=== PATIENT | female | born 1965 | race Caucasian/White ===

== ENCOUNTER → 2016-10-17 | Outpatient (CLI) | payer OTHER ==
[~2016-10-17] VITALS: Ht 167.6 cm; Wt 66.2 kg
[~2016-10-17] MED LIST: ADDERALL 20 MG20 M1 PO; AMBIEN 10 MG TA10 MG PO; CARISOPRODOL 3350 MG PO; CYMBALTA60 MG PO; METHADONE HCL 110 M1 PO; MOVANTIK25 MG PO; NABUMETONE 750750 M1 PO; NORCO 5-325 TA1 EACH PO; NORFLEX100 MG PO; PERCOCET 5-3251 EACH PO; PERCOCET PO; SOMA250 MG; SUBOXONE 8 MG-1 EAC3 SL; XANAX1 MG PO; ZANAFLEX4 MG PO; ZOFRAN ODT4 MG PO
--- NOTE | ~2016-10-17 | HPC ---
[facility] [place] [address] PAIN MANAGEMENT CONSULTATION Name: CARLADMITRY LEW Room #: REG [facility] Meryl#: [id number] Admission: 10/17/16 Attend Phys: Darron Britt DO Discharge: Date of : 61 Report #: [id number] THIS REPORT FOR: //name// CC: Eder Britt HISTORY OF PRESENT ILLNESS: The patient is a 51-year-old female being treated for cervical and lumbar radiculopathy status post decompressive laminectomy, myofascial pain requiring complex medication management. She was last seen in the pain clinic 08/15/2016, continued on relatively high dose opiate analgesics, methadone 10 mg 5 times a day. Prior urine drug screen on 01/13/2016 was positive for prescribed medication including amphetamine and Xanax, which she receives from her psychiatrist. She returns to the pain clinic today noting that while medications have typically provided sufficient analgesia to participate in activities of daily living, she did have increasing pain over the holidays with increasing activity, though she is pleased with her functional status. She currently rates her pain as 6/10, primarily axial back pain. 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 Again, prior back surgery, lumbar fusion, laminectomy L2 through S1, 06/2015, prior C5 through C7 cervical fusion. Rates pain as 6/10, exacerbated with walking, movement and standing. Notes medications, ice and TENS unit afford efficacy. PHYSICAL EXAMINATION: GENERAL: Shows a 51-year-old female, BMI is 23.6 kg/m2. VITAL SIGNS: Stable as noted in the EMR. Does not use tobacco products. MUSCULOSKELETAL: Rises from the chair using the armrest. Gait is modestly antalgic. Diffuse tenderness across the low back. Lower extremity strength is preserved. Gait is tandem. We reviewed the fact that opiate medications are being used to provide analgesia adequate to support activities of daily living, not attempting to achieve a specific pain score on the 0-10 Visual Analog Scale. The current opiate medications are providing sufficient analgesia to allow the patient to participate in activities of daily living. The patient is not exhibiting any aberrant behavior suggestive of drug diversion. The patient is not having any adverse reactions to medications. The patient is not suffering from daytime somnolence or mental acuity changes. The patient is managing opiate-induced constipation with appropriate rznj-wai-dzjxyjj agents and dietary considerations. The patient was counseled on concern for caution with operating a motor vehicle while using opiate medications. [address] [address] PAIN MANAGEMENT CONSULTATION Name: DMITRY AGUIRRE Room #: REG [facility] Meryl#: [id number] Admission: 10/17/16 Attend Phys: Darron Britt DO Discharge: Date of : 61 Report #: [id number] A physical exam was performed and the patient's functional status was evaluated. All patients with back pain were advised against the bed rest greater than 4 days and were advised to return to normal activities. Pain score assessment was noted and the treatment plan was reviewed with the patient. All current medications, both prescribed and OTC were reviewed and reconciled on the electronic medical record. Tobacco screening was accomplished and smoking cessation was advised when indicated. BMI was noted and diet/exercise modification was recommended for all patients following outside normal parameters. I reviewed with the patient today their responsibilities to safeguard prescription medications, reviewed their responsibility to utilize medications only as prescribed by the physician. They are to seek and receive pain medications only from 1 physician group ( [facility]). They are to use 1 pharmacy and keep the clinic informed if they change pharmacies. Their responsibilities include making followup visits in a timely fashion and to avoid abrupt discontinuation of medication usage. Their responsibilities further include bringing their medications (bottles from the pharmacy with residual pills) to the visit for possible confirmation of pill counts and the patient understands it is their responsibility to submit to random drug screens to ensure both that the medications prescribed are present, and that no other controlled substances are present. All prescriptions provided today were generated electronically. ASSESSMENT: Chronic pain syndrome requiring complex medication management, myofascial pain component in a patient status post both cervical and lumbar decompressive laminectomy, stable on baseline medications. Currently, utilizing 50 mg of methadone a day equivalent to roughly 150 mEq of morphine. We did discuss this is a supratherapeutic dose of opiate analgesic by definition and concerned that some insurance companies are suggesting that they may not continue to support this dosing. It is noteworthy that when the patient came to my practice earlier in 2015, she was exhibiting opiate-induced hyperalgesia utilizing OxyContin 60 mg b.i.d., oxycodone 30 mg averaging about 4-6 a day, roughly 300 mg of oxycodone or 450 mEq of morphine at that time. Hence, she has dramatically lowered her overall opiate load. RECOMMENDATIONS: Continue baseline medication unchanged, methadone 10 mg 5 tablets a day, 2 in the morning, 1 at noon, and 2 at night. I have taken the liberty of writing for two months of current medications. Follow up at that time, earlier if needed. <ELECTRONICALLY SIGNED> By: Darron Britt DO 10/23/16 1031 [id number] [id number] Darron Britt DO /beckie
[2016-10-17 10:50] VITALS: BP 134/82
== END | disposition home or self-care (01) ==
LOC: PAIN 07:12
DX: G89.4 Chronic pain syndrome (principal); M79.1 Myalgia; M54.16 Radiculopathy, lumbar region; M54.12 Radiculopathy, cervical region; Z98.890 Other specified postprocedural states

== ENCOUNTER → 2017-02-06 | Outpatient (CLI) | payer OTHER ==
[~2017-02-06] VITALS: Ht 170.2 cm; Wt 64.4 kg
--- NOTE | ~2017-02-06 | HPC ---
[facility] [place] [address] PAIN MANAGEMENT CONSULTATION Name: CARLADMITRY VIPIN Room #: REG Elyse Sheth#: [id number] Admission: 02/06/17 Attend Phys: Darron Britt DO Discharge: Date of : 61 Report #: [id number] THIS REPORT FOR: //name// CC: Eder Britt HISTORY OF PRESENT ILLNESS: The patient is a 51-year-old female being treated for cervical radiculopathy status post decompressive laminectomy, ongoing axial back pain status post lumbar decompressive laminectomy, myofascial pain component requiring complex medication management. Last seen in the pain clinic 12/12/2016, continued on methadone 10 mg, 2 in the morning, one 3 times a day, subsequent total of 5 tablets a day, tizanidine 4 mg t.i.d. for spasm, Relafen 750 mg prescribed b.i.d., but she takes it nondaily. She was given trigger point injections at last visit with some efficacy. Last urine drug screen was 08/15/2016, positive for prescribed medications. The patient was initially seen in consultation in early 2015 on high dose opiates, 450 mg equivalent of morphine via OxyContin 60 mg b.i.d. and oxycodone 30 mg 4-6 tablets a day. She has come down nicely on her current medications and is quite functional. She returns to the pain clinic today noting medications are providing sufficient analgesia to continue pain at a 3 on a 0-10 visual analog scale, still has some pain primarily in the low back, which she attributes to physical therapist pulling on her doing some PT. Notes medications, continued to be helpful. She notes the pain is exacerbated with movement, walking, standing, some relief with medications using a TENS unit and using ice and/or lying down. PHYSICAL EXAMINATION: Relatively unchanged pleasant 51-year-old female, BMI is 22.2 kilograms per meter squared. Vital signs stable as noted on the EMR. Does not use tobacco products. Rises from the chair using the armrest. Gait is tandem. Diffuse tenderness in the low back, left greater than right. Lower extremity strength is preserved. EXTREMITIES: Cervical range of motion is modestly limited. Upper extremity strength is preserved. We reviewed the fact that opiate medications are being used to provide analgesia adequate to support activities of daily living, not attempting to achieve a specific pain score on the 0-10 Visual Analog Scale. The current opiate medications are providing sufficient analgesia to allow the patient to participate in activities of daily living. The patient is not exhibiting any aberrant behavior suggestive of drug diversion. The patient is not having any adverse reactions to medications. The patient is not suffering from daytime somnolence or mental acuity changes. The patient is managing opiate-induced constipation with appropriate zuoc-fyy-rovixpl agents and dietary considerations. The patient was counseled on concern [place] [address] PAIN MANAGEMENT CONSULTATION Name: CARLADMITRY VIPIN Room #: REG EVELYN Sheth#: [id number] Admission: 02/06/17 Attend Phys: Darron Britt DO Discharge: Date of : 61 Report #: [id number] a motor vehicle while using opiate medications. A physical exam was performed and the patient's functional status was evaluated. All patients with back pain were advised against the bed rest greater than 4 days and were advised to return to normal activities. Pain score assessment was noted and the treatment plan was reviewed with the patient. All current medications, both prescribed and OTC were reviewed and reconciled on the electronic medical record. Tobacco screening was accomplished and smoking cessation was advised when indicated. BMI was noted and diet/exercise modification was recommended for all patients following outside normal parameters. I reviewed with the patient today their responsibilities to safeguard prescription medications, reviewed their responsibility to utilize medications only as prescribed by the physician. They are to seek and receive pain medications only from 1 physician group ( [facility]). They are to use 1 pharmacy and keep the clinic informed if they change pharmacies. Their responsibilities include making followup visits in a timely fashion and to avoid abrupt discontinuation of medication usage. Their responsibilities further include bringing their medications (bottles from the pharmacy with residual pills) to the visit for possible confirmation of pill counts and the patient understands it is their responsibility to submit to random drug screens to ensure both that the medications prescribed are present, and that no other controlled substances are present. All prescriptions provided today were generated electronically. ASSESSMENT: Chronic pain syndrome requiring complex medication management, axial back pain, myofascial pain status post both cervical and lumbar decompressive laminectomies, requiring complex medication management, stable on baseline medication. RECOMMENDATION: Continue methadone 10 mg 5 tablets daily, 2 in the morning and 3 subsequent make that at three times a day, subsequent, tizanidine 4 mg t.i.d. for spasm, does not require prescription for nabumetone. Follow up in 2 months for reevaluation, earlier if needed. <ELECTRONICALLY SIGNED> By: Darron Britt DO 02/07/17 0925 1459 0643 Darron Britt DO /nt
[2017-02-06 14:04] VITALS: BP 137/84
== END ==
LOC: PAIN 08:03
DX: G89.4 Chronic pain syndrome (principal); M54.9 Dorsalgia, unspecified; M79.1 Myalgia; Z98.890 Other specified postprocedural states

== ENCOUNTER → 2017-04-11 | Outpatient (CLI) | payer OTHER ==
[~2017-04-11] VITALS: Ht 170.2 cm; Wt 72.1 kg
[2017-04-11 12:47] VITALS: BP 151/73
== END | disposition home or self-care (01) ==
LOC: PAIN 06:53
DX: M54.16 Radiculopathy, lumbar region (principal); M54.12 Radiculopathy, cervical region; M47.896 Other spondylosis, lumbar region; M79.1 Myalgia; F11.20 Opioid dependence, uncomplicated; Z98.890 Other specified postprocedural states; Z88.6 Allergy status to analgesic agent; Z88.8 Allergy status to other drugs, medicaments and biological substances

== ENCOUNTER → 2017-06-06 | Outpatient (CLI) | payer OTHER ==
[~2017-06-06] VITALS: Ht 170.2 cm; Wt 72.6 kg
[~2017-06-06] MED LIST changes: +HORMONE REPLACEMENT PO
--- NOTE | ~2017-06-06 | HPC ---
[facility] [address] [place] [address] PAIN MANAGEMENT CONSULTATION Name: Timi AGUIRRE Room #: REG EVELYN Sheth#: [id number] Admission: 06/06/17 Attend Phys: Darron Britt DO Discharge: Date of : 61 Report #: [id number] THIS REPORT FOR: //name// CC: Eder Britt The patient is a 52-year-old female being treated for symptomatic cervical radiculopathy, status post decompressive laminectomy; history of lumbar decompressive laminectomy; axial back pain; lumbar spondylosis requiring high-risk complex medication management. Last seen in the pain clinic on 04/11/2017. Continue methadone 10 mg 2 in the morning, 1 at noon and 2 at night; tizanidine 4 mg 1 or 2 for spasm breakthrough pain. We talked about weaning methadone as able. Returns to pain clinic today. She notes that she has actually been able to wean down on methadone typically taking one in the morning, one at noon and one or two at night. She notes no significant change in functional status. She still rates the pain about 3 on a VAS primarily mid low back pain radiating to the left hip. Aching, tender, constant, nagging sensation, exacerbated with walking, movement and standing. We reviewed the fact that opiate medications are being used to provide analgesia adequate to support activities of daily living, not attempting to achieve a specific pain score on the 0-10 Visual Analog Scale. The current opiate medications are providing sufficient analgesia to allow the patient to participate in activities of daily living. The patient is not exhibiting any aberrant behavior suggestive of drug diversion. The patient is not having any adverse reactions to medications. The patient is not suffering from daytime somnolence or mental acuity changes. The patient is managing opiate-induced constipation with appropriate tyme-avs-ncpgnak agents and dietary considerations. The patient was counseled on concern for caution with operating a motor vehicle while using opiate medications. A physical exam was performed and the patient's functional status was evaluated. All patients with back pain were advised against the bed rest greater than 4 days and were advised to return to normal activities. Pain score assessment was noted and the treatment plan was reviewed with the patient. All current medications, both prescribed and OTC were reviewed and reconciled on the electronic medical record. Tobacco screening was accomplished and smoking cessation was advised when indicated. BMI was noted and diet/exercise modification was recommended for all patients following outside normal parameters. I reviewed with the patient today their responsibilities to safeguard prescription medications, reviewed their responsibility to utilize medications only as prescribed by the physician. They are to seek and receive pain medications only from 1 physician group ( [facility]). They are to use [address] [place] [address] PAIN MANAGEMENT CONSULTATION Name: Timi AGUIRRE Room #: REG EVELYN Sheth#: [id number] Admission: 06/06/17 Attend Phys: Darron Britt DO Discharge: Date of : 61 Report #: [id number] pharmacy and keep the clinic informed if they change pharmacies. Their responsibilities include making followup visits in a timely fashion and to avoid abrupt discontinuation of medication usage. Their responsibilities further include bringing their medications (bottles from the pharmacy with residual pills) to the visit for possible confirmation of pill counts and the patient understands it is their responsibility to submit to random drug screens to ensure both that the medications prescribed are present, and that no other controlled substances are present. All prescriptions provided today were generated electronically. PHYSICAL EXAMINATION: Shows 52-year-old female. BMI is 25.1 kg/m2. Blood pressure is 90/64, pulse 84, respirations of 14. Rises from chair using armrest. Gait is tandem. Lower extremity strength is generally preserved. Lumbar flexion is modestly limited. The patient notes no problems with daytime somnolence, mental acuity changes nor constipation. In fact is actually having a little bit of loose stools. We talked about using an yqvn-rrq-fgkkvbn probiotics. Last urine drug screen on 08/15/2016 was positive for prescribed medications. RECOMMENDATIONS: We will repeat buccal swab at next visit. No aberrant behavior suggestive of drug diversion, simply complying with the opiate consent to treat contract. I have taken the liberty of renewing methadone 10 mg, decreasing from 150 to 120 tablets for 30 days one in the morning, one at noon and one or two at night. I have wrote for 2 months of current medication. Continue tizanidine 4 mg 1 tablet 3-4 times a day, limit 100 tablets for 30 days. Continue nabumetone 750 mg b.i.d. <ELECTRONICALLY SIGNED> By: Darron Britt DO 06/09/17 1253 1217 27 Darron Britt DO /nt
[2017-06-06 10:56] VITALS: BP 98/64
[2017-06-06 10:58] VITALS: BP 98/64
== END ==
LOC: PAIN 07:04
DX: M47.896 Other spondylosis, lumbar region (principal); M54.12 Radiculopathy, cervical region

== ENCOUNTER → 2017-09-29 | Outpatient (CLI) | payer OTHER ==
[~2017-09-29] VITALS: Ht 170.2 cm; Wt 75.9 kg
--- NOTE | ~2017-09-29 | HPC ---
[facility] [address] [address] PAIN MANAGEMENT CONSULTATION Name: Timi AGUIRRE Room #: REG [facility] Meryl#: [id number] Admission: 09/29/17 Attend Phys: Darron Britt DO Discharge: Date of : 61 Report #: [id number] THIS REPORT FOR: //name// CC: Eder Britt HISTORY OF PRESENT ILLNESS: The patient is a 52-year-old female being treated for cervical radiculopathy status post decompressive laminectomy, axial back pain status post lumbar decompressive laminectomy, all requiring high-risk complex medication management. The patient was last seen in the pain clinic on 08/04/2017, continued on baseline medication. Last buccal swab at that time was positive for prescribed medications and no others. We reviewed the fact that opiate medications are being used to provide analgesia adequate to support activities of daily living, not attempting to achieve a specific pain score on the 0-10 Visual Analog Scale. The current opiate medications are providing sufficient analgesia to allow the patient to participate in activities of daily living. The patient is not exhibiting any aberrant behavior suggestive of drug diversion. The patient is not having any adverse reactions to medications. The patient is not suffering from daytime somnolence or mental acuity changes. The patient is managing opiate-induced constipation with appropriate umxe-typ-ovljoji agents and dietary considerations. The patient was counseled on concern for caution with operating a motor vehicle while using opiate medications. A physical exam was performed and the patient's functional status was evaluated. All patients with back pain were advised against the bed rest greater than 4 days and were advised to return to normal activities. Pain score assessment was noted and the treatment plan was reviewed with the patient. All current medications, both prescribed and OTC were reviewed and reconciled on the electronic medical record. Tobacco screening was accomplished and smoking cessation was advised when indicated. BMI was noted and diet/exercise modification was recommended for all patients following outside normal parameters. I reviewed with the patient today their responsibilities to safeguard prescription medications, reviewed their responsibility to utilize medications only as prescribed by the physician. They are to seek and receive pain medications only from 1 physician group ( [facility]). They are to use 1 pharmacy and keep the clinic informed if they change pharmacies. Their responsibilities include making followup visits in a timely fashion and to avoid abrupt discontinuation of medication usage. Their responsibilities further include bringing their medications (bottles from the pharmacy with residual pills) to the visit for possible confirmation of pill counts and the patient understands it is their responsibility to submit to random drug screens to ensure both that the medications prescribed are present, and that no other controlled substances are present. All prescriptions provided today were [address] [address] PAIN MANAGEMENT CONSULTATION Name: Timi AGUIRRE Room #: REG [facility] Meryl#: [id number] Admission: 09/29/17 Attend Phys: Darron Britt DO Discharge: Date of : 61 Report #: [id number] generated electronically. The patient returns to the pain clinic today noting pain continues to be problematic, rates it a 4 on a VAS but well controlled with current medication taking 4-5 methadone a day, 135 methadone 10 mg tablets for 30 days. PHYSICAL EXAMINATION: GENERAL: Shows 52-year-old female, BMI is 26.2 kilograms per meter squared. VITAL SIGNS: Blood pressure is modestly elevated 161/99, pulse 86 and respiration 16. MUSCULOSKELETAL: Rises from chair using armrest. Gait is tandem. Diffuse tenderness across the low back. Lumbar flexion is limited. Lower extremity strength is preserved. Cervical range of motion is modest. ASSESSMENT: Symptomatic cervical radiculopathy status post decompressive laminectomy, symptomatic lumbar radiculopathy status post decompressive laminectomy, chronic pain syndrome requiring high-risk complex medication management. All requiring complex medication management. RECOMMENDATIONS: Continue current medication unchanged, methadone 10 mg 4-5 tablets a day, #135 tablets for 30 days; tizanidine 4 mg t.i.d. for breakthrough pain and nabumetone 750 b.i.d. Follow up in 2 months to evaluate efficacy of medication. <ELECTRONICALLY SIGNED> By: Darron Britt DO 10/01/17 0808 1708 0037 Darron Britt DO /nt
[2017-09-29 15:01] VITALS: BP 161/99
== END ==
LOC: PAIN 08-14 15:12
DX: M54.12 Radiculopathy, cervical region (principal); M54.16 Radiculopathy, lumbar region; G89.4 Chronic pain syndrome; Z79.899 Other long term (current) drug therapy

== ENCOUNTER → 2017-11-28 | Outpatient (CLI) | payer OTHER ==
[~2017-11-28] VITALS: Ht 170.2 cm; Wt 77.3 kg
[~2017-11-28] MED LIST changes: +ACETAMINOPHEN-1 EAC1 PO; +AMOXICILLIN 50500 MG PO; +BP MED
--- NOTE | ~2017-11-28 | HPC ---
[facility] [place] [place] [address] PAIN MANAGEMENT CONSULTATION Name: Timi AGUIRRE Room #: REG Elyse Sheth#: [id number] Admission: 11/28/17 Attend Phys: Darron Britt DO Discharge: Date of : 61 Report #: [id number] THIS REPORT FOR: //name// CC: Eder Britt DATE OF SERVICE: 11/28/2017 HISTORY OF PRESENT ILLNESS: The patient is a 52-year-old female typically treated for chronic axial back pain, lumbar radiculopathy status post decompressive laminectomy. Comorbidity includes history of cervical decompressive laminectomy requiring complex medication management. The patient was last seen in the pain clinic on 09/29/2017. Last random drug screen on 08/04/2017 was positive for prescribed medications. The patient returns to the pain clinic today continuing on methadone 10 mg 1 tablet 4-5 times a day, limit 135 tablets for 30 days; tizanidine 4 mg t.i.d. for spasm; nabumetone 750 b.i.d. on a nondaily basis. The patient notes subjective pain score is 4 on a VAS. BMI is 26.7 kilograms per meter squared. Blood pressure is elevated today at 164/105, pulse 93, respirations 16. She is following up this afternoon with her senior hr generalist physician and I asked that she note the hypertension to her. Her opiate consent to treat contract was last signed on 12/21/2015. She scores low on the risk assessment tool; high on her functional assessment tool, 65/70. The patient notes primary pain in the low back, hips and knees. Medication does help with physical activity. She does have a cracked tooth in the left upper side. She did get a prescription for Tylenol #3, dispensed 20 tablets from her dentist. I spent a good deal of time today discussing concerns about getting opiates for multiple pain providers. I pointed out that I suspect her dentist does not know she is receiving methadone 40-50 mg a day. With this dose, the Tylenol #3 will likely have less efficacy and we simply do not want to use more egregious opiates. We stressed the patient that we are using opiate only to help mitigate pain to somewhat, we are not trying to alleviate pain. We want her to continue physical activity. PHYSICAL EXAMINATION: Otherwise shows a 52-year-old female, BMI is 26.7 kilograms per meter squared. She has a little thoracolumbar scoliosis. Pain is at the apex of the lumbar scoliotic curve. Positive straight leg raise on the right that is fairly nominal. We reviewed the fact that opiate medications are being used to provide analgesia adequate to support activities of daily living, not attempting to achieve a specific pain score on the 0-10 Visual Analog Scale. The current opiate [address] [address] PAIN MANAGEMENT CONSULTATION Name: Timi AGUIRRE Room #: REG [facility] Meryl#: [id number] Admission: 11/28/17 Attend Phys: Darron Britt DO Discharge: Date of : 61 Report #: [id number] medications are providing sufficient analgesia to allow the patient to participate in activities of daily living. The patient is not exhibiting any aberrant behavior suggestive of drug diversion. The patient is not having any adverse reactions to medications. The patient is not suffering from daytime somnolence or mental acuity changes. The patient is managing opiate-induced constipation with appropriate sdui-xyf-zokmrll agents and dietary considerations. The patient was counseled on concern for caution with operating a motor vehicle while using opiate medications. A physical exam was performed and the patient's functional status was evaluated. All patients with back pain were advised against the bed rest greater than 4 days and were advised to return to normal activities. Pain score assessment was noted and the treatment plan was reviewed with the patient. All current medications, both prescribed and OTC were reviewed and reconciled on the electronic medical record. Tobacco screening was accomplished and smoking cessation was advised when indicated. BMI was noted and diet/exercise modification was recommended for all patients following outside normal parameters. I reviewed with the patient today their responsibilities to safeguard prescription medications, reviewed their responsibility to utilize medications only as prescribed by the physician. They are to seek and receive pain medications only from 1 physician group ( [facility]). They are to use 1 pharmacy and keep the clinic informed if they change pharmacies. Their responsibilities include making followup visits in a timely fashion and to avoid abrupt discontinuation of medication usage. Their responsibilities further include bringing their medications (bottles from the pharmacy with residual pills) to the visit for possible confirmation of pill counts and the patient understands it is their responsibility to submit to random drug screens to ensure both that the medications prescribed are present, and that no other controlled substances are present. All prescriptions provided today were generated electronically. ASSESSMENT: Symptomatic axial back pain, lumbar radiculopathy, status post decompressive laminectomy, thoracolumbar scoliosis, history of cervical decompressive laminectomy requiring complex medication management. RECOMMENDATION: Continue current medication unchanged, methadone 10 mg 135 tablets for 30 days, tizanidine 4 mg t.i.d., nabumetone 750 b.i.d. to be used on a nondaily basis. We did discuss concerns for cardiac risk in NSAID type agents in general. Discharged in good and stable condition. <ELECTRONICALLY SIGNED> By: Darron Britt DO 12/03/17 0725 1605 [id number] Darron Britt DO /nt
[2017-11-28 10:57] VITALS: BP 164/105
== END ==
LOC: PAIN 07:22
DX: M54.16 Radiculopathy, lumbar region (principal); M96.1 Postlaminectomy syndrome, not elsewhere classified; Z79.899 Other long term (current) drug therapy

== ENCOUNTER → 2018-01-22 | Outpatient (CLI) | payer OTHER ==
[~2018-01-22] VITALS: Ht 170.2 cm; Wt 76.8 kg
[~2018-01-22] MED LIST changes: -BP MED
--- NOTE | ~2018-01-22 | HPC ---
[facility] [address] [address] PAIN MANAGEMENT CONSULTATION Name: Timi AGUIRRE Room #: REG Elyse Sheth#: [id number] Admission: 01/22/18 Attend Phys: Darron Britt DO Discharge: Date of : 61 Report #: [id number] THIS REPORT FOR: //name// CC: Eder Britt The patient is a 52-year-old female, long known to pain clinic, being treated for symptomatic axial back pain, history of both cervical and lumbar decompressive laminectomy, requiring complex medication management. Last seen in the pain clinic on 11/28/2017. I continued the patient on her baseline medication, she has been using methadone 10 mg 1 tablet 4-5 times a day, 135 tablets for 30 days; tizanidine 4 mg t.i.d. for spasm; nabumetone 750 b.i.d. on a "nondaily basis." She returns to pain clinic noting the pain continues to be problematic. Pain is primarily in the mid back, hips and legs. Rates pain 4 on a VAS, exacerbated with standing, walking and movement. 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 Unfortunately, the patient remains fairly sedentary as well. They do have someone who comes in and cooks 1 meal a week and they "make due" for the rest of the week. PHYSICAL EXAMINATION: Today, physical exam shows 52-year-old female, BMI is 26.5 kilograms per meter squared. Blood pressure is elevated at 164/104, pulse 96, respirations 16. She is alert and oriented to person, place and time, judged to be a reasonable historian. No problems with daytime somnolence, mental acuity changes or constipation. Little decreased range of motion, some cervical tenderness. Upper extremity strength is generally preserved. Rises from chair using armrest. Gait is tandem. Diffuse axial tenderness, though no discrete trigger points are noted. No focal weakness is noted. Reviewing the chart, it revealed she has typically been normotensive, hypertension was noted last summer that is fairly moderate at 151/73, July pressure was 138/95. On 09/29/2017, continuing to trend up 161/99, pulse of 86 and last visit on 11/28/2017, pressure was quite elevated at 164/105 and pulse 93. Today with concern for escalating blood pressure, we strongly recommend she follow up with a general teller physician. She is on no antihypertensive agents. We will absolutely have her discontinue nabumetone and any other tnkt-pne-osjiuld nonsteroidal anti-inflammatories. Physical exam is otherwise unchanged. We reviewed the fact that opiate medications are being used to provide analgesia adequate to support activities of daily living, not attempting to achieve a specific pain score on the 0-10 Visual Analog Scale. The current opiate [address] [address] PAIN MANAGEMENT CONSULTATION Name: Timi AGUIRRE Room #: REG EVELYN Sheth#: [id number] Admission: 01/22/18 Attend Phys: Darron Britt DO Discharge: Date of : 61 Report #: [id number] medications are providing sufficient analgesia to allow the patient to participate in activities of daily living. The patient is not exhibiting any aberrant behavior suggestive of drug diversion. The patient is not having any adverse reactions to medications. The patient is not suffering from daytime somnolence or mental acuity changes. The patient is managing opiate-induced constipation with appropriate batd-uyb-kdiajes agents and dietary considerations. The patient was counseled on concern for caution with operating a motor vehicle while using opiate medications. A physical exam was performed and the patient's functional status was evaluated. All patients with back pain were advised against the bed rest greater than 4 days and were advised to return to normal activities. Pain score assessment was noted and the treatment plan was reviewed with the patient. All current medications, both prescribed and OTC were reviewed and reconciled on the electronic medical record. Tobacco screening was accomplished and smoking cessation was advised when indicated. BMI was noted and diet/exercise modification was recommended for all patients following outside normal parameters. I reviewed with the patient today their responsibilities to safeguard prescription medications, reviewed their responsibility to utilize medications only as prescribed by the physician. They are to seek and receive pain medications only from 1 physician group ( [facility]). They are to use 1 pharmacy and keep the clinic informed if they change pharmacies. Their responsibilities include making followup visits in a timely fashion and to avoid abrupt discontinuation of medication usage. Their responsibilities further include bringing their medications (bottles from the pharmacy with residual pills) to the visit for possible confirmation of pill counts and the patient understands it is their responsibility to submit to random drug screens to ensure both that the medications prescribed are present, and that no other controlled substances are present. All prescriptions provided today were generated electronically. ASSESSMENT: Chronic axial back pain and lumbar radiculopathy, status post decompressive laminectomy and the patient is also status post cervical decompressive laminectomy. The cervical symptoms are relatively quiescent. RECOMMENDATIONS: 1. Random drug screen today (buccal). 2. Continue current medications methadone and tizanidine. Discontinue nabumetone. Follow up with general teller regarding hypertension. <ELECTRONICALLY SIGNED> By: Darron Britt DO 01/26/18 0822 1358 01 Darron Britt DO /beckie
[2018-01-22 10:35] VITALS: BP 161/104
== END ==
LOC: PAIN 07:19
DX: M54.16 Radiculopathy, lumbar region (principal); M96.1 Postlaminectomy syndrome, not elsewhere classified

== ENCOUNTER 2019-02-23 16:20 | Emergency (ER) | payer OTHER ==
[~2019-02-23] VITALS: Ht 170.2 cm; Wt 80.3 kg
[~2019-02-23 16:20] MED LIST changes: +BP MED
[2019-02-23] MEDS ORDERED: WELLBUTRIN SR150 MG PO (17:14)
[2019-02-23] MEDS ORDERED: XANAX 0.5 MG0.5 MG PO (17:15)
[2019-02-23] MEDS ORDERED: NEURONTIN 300300 M1 PO (17:15)
[2019-02-23] MEDS ORDERED: PAXIL10 MG PO (17:15)
[2019-02-23 17:17] LABS: ABSOLUTE NEUTROPHILS 3.8 thou/uL (1.4-8.2); BASOPHILS 1.3 % (0.0-2.0); EOSINOPHILS 1.6 % (0.0-3.0); HEMOGLOBIN 11.4 gm/dL (12.0-15.0); LYMPHOCYTES 31.5 % (24.0-44.0); MCH 28.9 pg (26.0-34.0); MCHC 32.5 g/dL (28.0-37.0); MCV 88.8 fL (80.0-100.0); MONOCYTES 4.7 % (1.0-8.0); PLATELET COUNT 346 thou/uL (150-400); POLYS 60.9 % (36.0-66.0); RBC 3.95 mil/uL (4.20-5.00); RDW 13.6 % (10.5-14.5); WBC 6.3 thou/uL (4.0-11.0)
[2019-02-23 17:22] LABS: ANION GAP 8 mmol/L (7-16); BUN 16 mg/dL (7-18); CALCIUM 9.2 mg/dL (8.5-10.1); CHLORIDE 102 mmol/L (98-107); CO2 26 mmol/L (21-32); CREATININE 1.1 mg/dL (0.6-1.0); GLUCOSE 146 mg/dL (74-106); POTASSIUM 3.4 mmol/L (3.5-5.1); SODIUM 136 mmol/L (136-145)
[2019-02-23 17:33] LABS: ALBUMIN 3.9 g/dL (3.4-5.0); SGOT 15 U/L (15-37); SGPT 17 U/L (30-65); TOTAL BILIRUBIN 0.3 mg/dL (<0.1-1.0); TOTAL PROTEIN 7.7 g/dL (6.4-8.2); TROPONIN-I <0.06 ng/mL (<0.06)
[2019-02-23 21:04] VITALS: BP 130/74
--- NOTE | 2019-02-24 08:13 | EKG ---
[place] [address] 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 ��������������������������������������������� 02/24/19 0813 1628 1628 Antony Lee MD, FACC /EPI
--- NOTE | 2019-02-24 08:15 | EKG ---
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 : 1965 Requested By: Guerda Elam Order Number: [id number] MD: Vicente Wetzel Measurements Intervals [place] Rate: 84 P: 58 [place]: 167 QRS: 10 QRSD: 103 T: 76 QT: 396 QTc: 469 Interpretive Statements Sinus rhythm Baseline wander in lead(s) V2 No previous ECG available for comparison Electronically Signed On 02-24-2019 8:15:06 CDT by Vicente Wetzel [email or web address] ��������������������������������������������� <ELECTRONICALLY SIGNED> ���������������������������������������� By: Vicente Wetzel MD ��������������������������������������������� 02/24/19 08 192 192 Vicente Wetzel MD /BOB
== END 2019-02-23 21:04 | disposition home or self-care (01) ==
LOC: ER 16:20
PROVIDERS: Student in an Organized Health Care Education/Training Program
DX: R07.89 Other chest pain (principal); F17.210 Nicotine dependence, cigarettes, uncomplicated; Z88.6 Allergy status to analgesic agent